=== PATIENT | male | born 1950 | race American Indian/Alaskan Native ===

== ENCOUNTER 2017-08-10 22:42 | Inpatient (IN) | payer MEDICARE ==
--- NOTE | 2017-08-10 23:40 | Emergency Department Report ---
HPI - General Time Seen by Provider: 08/10/17 22:50 - HPI HPI: This is a 66 year-old male presents to the emergency department by EMS from home after the patient had an episode of passing out with some seizure-like activity. Patient says that he had 2 episodes of passing out about 2 weeks ago. He was never seen for this at that time. This evening the patient says that his called him in to look at something at the computer screen and the patient says that he told his that he felt dizzy and similar to when he passed out a few weeks ago. Shortly after this he says he woke up on the ground having passed out once again. Patient has a history of hypertension and trigeminal neuralgia and is on carbamazepine for this. He denies any history of CVA, IN or seizures. No recent travel or sick contacts at home. ED Review of Systems ROS: Stated complaint: DIZZINESS Other details as noted in HPI Comment: All other systems reviewed and negative Constitutional: denies: chills, fever Eyes: denies: eye pain, eye discharge, vision change ENT: denies: ear pain, throat pain Respiratory: denies: cough, shortness of breath, wheezing Cardiovascular: syncope. denies: chest pain Gastrointestinal: denies: abdominal pain, nausea, diarrhea Genitourinary: denies: urgency, dysuria Musculoskeletal: denies: back pain, joint swelling, arthralgia Skin: denies: rash, lesions Neurological: other (dizziness). denies: numbness Physical Exam - Physical Exam Physical Exam: GENERAL: The patient is well-developed well-nourished. HENT: Normocephalic. Atraumatic. Patient has moist mucous membranes. EYES: Extraocular motions are intact. Pupils equal reactive to light bilaterally. Fatigable horizontal nystagmus. NECK: Supple. Trachea is midline. CHEST/LUNGS: Clear to auscultation. There is no respiratory distress noted. HEART/CARDIOVASCULAR: Regular. There is no tachycardia. There is no murmur. ABDOMEN: Abdomen is soft, nontender. Patient has normal bowel sounds. There is no abdominal distention. SKIN: Skin is warm and dry. NEURO: The patient is awake, alert, and oriented. The patient is cooperative. The patient has no focal neurologic deficits. The patient has normal speech. Cranial nerves II-12 grossly intact. MUSCULOSKELETAL: There is no tenderness or deformity. There is no limitation range of motion. There is no evidence of acute injury. ED Medical Decision Making - Lab Data Result diagrams: 08/10/17 23:55 08/10/17 23:55 - EKG Data -: EKG Interpreted by Me EKG shows normal: sinus rhythm, axis, intervals, QRS complexes, ST-T waves Rate: normal - EKG Data When compared to previous EKG there are: previous EKG unavailable Interpretation: normal EKG - Radiology Data Radiology results: report reviewed, image reviewed interpreted by me: Chest x-ray does not show any acute process. There are no pleural effusions, obvious pneumonia and there is no pneumothorax. EXAM: CT HEAD/BRAIN WO CON HISTORY: Syncope COMPARISON: None available. TECHNIQUE: Axial images obtained skull base through vertex. FINDINGS: No acute intracranial hemorrhage, midline shift or pathologic extra axial fluid collection. Ventricles and cisterns are normal in size and configuration for the patient's age. Silvestre-white differentiation preserved. Calvarium grossly intact. Orbits are grossly unremarkable. Mild moderate mucosal thickening of the paranasal sinuses. Mastoid air cells are clear. IMPRESSION: No grossly acute intracranial abnormality. Transcribed By: LMA Dictated By: LANIE SHELBY MD Electronically Authenticated By: LANIE SHELBY MD Signed Date/Time: 08/10/171948 - Medical Decision Making Patient presents after some type of syncopal event versus seizure. This is the third such event in the past [address] of the head does not show any bleed, shift, mass or any acute process. EKG is normal. Labs are mostly unremarkable and did not show any etiology of his symptoms. However the patient says he still does not feel like himself. His has noticed a few instances where he appears to have some weakness and/or transient altered mental status. For these reasons, I feel the patient would benefit from admission for further evaluation and possible treatment. He has been accepted for admission by the hospitalist, Dr. Rosenberg. - Differential Diagnosis CVA, TIA, seizure, dysrhythmia Critical Care Time: No Critical care attestation.: If time is entered above; I have spent that time in minutes in the direct care of this critically ill patient, excluding procedure time. ED Disposition Clinical Impression: Syncope and collapse, Dizziness, Hypokalemia, Seizure-like activity Disposition: DC-09 OP ADMIT IP TO THIS HOSP Is pt being admited?: Yes Condition: Stable Instructions: Syncope (ED) Referrals: SIMONE SCHULER MD [Primary Care Provider] - 3-5 Days Time of Disposition: 05:01
--- NOTE | 2017-08-10 23:52 | Cat Scan Report ---
FINAL REPORT EXAM: CT HEAD/BRAIN WO CON HISTORY: Syncope COMPARISON: None available. TECHNIQUE: Axial images obtained skull base through vertex. FINDINGS: No acute intracranial hemorrhage, midline shift or pathologic extra axial fluid collection. Ventricles and cisterns are normal in size and configuration for the patient's age. Silvestre-white differentiation preserved. Calvarium grossly intact. Orbits are grossly unremarkable. Mild moderate mucosal thickening of the paranasal sinuses. Mastoid air cells are clear. IMPRESSION: No grossly acute intracranial abnormality.
--- NOTE | 2017-08-10 23:53 | XRay Report ---
FINAL REPORT EXAM: XR CHEST 1V AP HISTORY: Chest Pain COMPARISON: None available. FINDINGS: Frontal view(s) of the chest obtained. Heart normal in size. Mild tortuosity of the thoracic aorta. Mild linear atelectasis or scarring at the right lung base. Lungs otherwise clear. No pneumothorax. IMPRESSION: No grossly acute findings.
[2017-08-11 00:11] LABS: Basophils % (Auto) 2.3 % (0.0-1.8); Eosinophils % (Auto) 2.3 % (0.0-4.3); Hematocrit 39.8 % (35.5-45.6); Hemoglobin 13.4 gm/dl (11.8-15.2); Mean Corpuscular HGB Conc 34 % (32-34); Mean Corpuscular Hemoglobin 31 pg (28-32); Mean Corpuscular Volume 91 fl (84-94); Platelet Count 247 K/mm3 (140-440); Red Cell Distribution Width 13.2 % (13.2-15.2); White Blood Count 6.3 K/mm3 (4.5-11.0)
[2017-08-11 00:31] LABS: Alanine Aminotransferase 12 units/L (7-56); Albumin 3.9 g/dL (3.9-5); Albumin/Globulin Ratio 1.4 %; Alkaline Phosphatase 83 units/L (35-129); Anion Gap 14 mmol/L; BUN/Creatinine Ratio 22; Blood Urea Nitrogen 11 mg/dL (9-20); Calcium 8.5 mg/dL (8.4-10.2); Carbon Dioxide 29 mmol/L (22-30); Chloride 98.5 mmol/L (98-107); Glucose 158 mg/dL (75-100); Partial Thromboplastin Time 57.8 Sec. (24.2-36.6); Potassium 3.3 mmol/L (3.6-5.0); Sodium 138 mmol/L (137-145); Total Protein 6.7 g/dL (6.3-8.2)
[2017-08-11] MEDS ORDERED: K-DUR PO ONE (00:44)
[2017-08-11 01:29] LABS: INR > 17.67 (0.87-1.13)
[2017-08-11 02:16] LABS: Bilirubin,Urine NEG (Negative); Blood,Urine NEG (Negative); Ketones,Urine TR mg/dL (Negative); Leukocyte Esterase,Urine NEG (Negative); Mucus,Urine FEW /HPF; Nitrite,Urine NEG (Negative); Protein,Urine <15 mg/dL mg/dL (Negative); Urobilinogen,Urine < 2.0 mg/dL (<2.0)
[2017-08-11 02:37] LABS: Partial Thromboplastin Time 26.3 Sec. (24.2-36.6)
--- NOTE | 2017-08-11 03:32 | History and Physical Report ---
History of Present Illness Date of examination: 08/11/17 Date of admission: 08/11/17 Chief complaint: syncope History of present illness: This is a 66-year-old male with past medical history of hypertension and trigeminal neuralgia who presented to the emergency department with complaints of syncope. Patient reportedly has had 2 previous episodes of syncope that occurred approximately 2 weeks ago. The patient was noted to have a third syncopal episode today that was witnessed by the . ER physician states that the reported some questionable seizure activity previously, but no seizure activity tonight. is not available during my interview this morning. Patient did not have any bowel or bladder incontinence. Patient reported feeling dizzy prior to the episode. Patient denies any previous history of seizure disorder. Patient takes carbamazepine for his trigeminal neuralgia. No fever or chills. No cough or cold like symptoms. No headache or visual disturbances. No paresthesias or weakness. Past History Past Medical History: hypertension, other (trigeminal neuralgia) Past Surgical History: No surgical history Social history: no significant social history Family history: no significant family history Medications and Allergies Allergies Allergy/AdvReac Type Severity Reaction Status Date / Time No Known Allergies Allergy Unverified 08/10/17 23:32 Review of Systems All systems: negative Exam - Constitutional Vitals: Temp Pulse Resp BP Pulse Ox 98.9 F 76 13 121/82 94 08/10/17 23:40 08/11/17 01:00 08/11/17 01:00 08/11/17 01:00 08/11/17 01:00 General appearance: Present: no acute distress, well-nourished - EENT Eyes: Present: PERRL ENT: hearing intact, clear oral mucosa - Neck Neck: Present: supple, normal ROM - Respiratory Respiratory effort: normal Respiratory: bilateral: CTA - Cardiovascular Heart Sounds: Present: S1 & S2. Absent: rub, click - Extremities Extremities: pulses symmetrical, No edema Peripheral Pulses: within normal limits - Abdominal General gastrointestinal: Present: soft, non-tender, non-distended, normal bowel sounds Male genitourinary: Present: normal - Integumentary Integumentary: Present: clear, warm, dry - Musculoskeletal Musculoskeletal: gait normal, strength equal bilaterally - Psychiatric Psychiatric: appropriate mood/affect, intact judgment & insight - Neurologic Neurologic: CNII-XII intact, moves all extremities Results - Labs CBC & Chem 7: 08/10/17 23:55 08/10/17 23:55 Labs: Laboratory Last Values WBC 6.3 K/mm3 (4.5-11.0) 08/10/17 23:55 RBC 4.40 M/mm3 (3.65-5.03) 08/10/17 23:55 Hgb 13.4 gm/dl (11.8-15.2) 08/10/17 23:55 Hct 39.8 % (35.5-45.6) 08/10/17 23:55 MCV 91 fl (84-94) 08/10/17 23:55 MCH 31 pg (28-32) 08/10/17 23:55 MCHC 34 % (32-34) 08/10/17 23:55 RDW 13.2 % (13.2-15.2) 08/10/17 23:55 Plt Count 247 K/mm3 (140-440) 08/10/17 23:55 Lymph % (Auto) 11.7 % (13.4-35.0) L 08/10/17 23:55 [place] % (Auto) 3.9 % (0.0-7.3) 08/10/17 23:55 Eos % (Auto) 2.3 % (0.0-4.3) 08/10/17 23:55 Baso % (Auto) 2.3 % (0.0-1.8) H 08/10/17 23:55 Lymph # 0.7 K/mm3 (1.2-5.4) L 08/10/17 23:55 [place] # 0.2 K/mm3 (0.0-0.8) 08/10/17 23:55 Eos # 0.1 K/mm3 (0.0-0.4) 08/10/17 23:55 Baso # 0.1 K/mm3 (0.0-0.1) 08/10/17 23:55 Seg Neutrophils % 79.8 % (40.0-70.0) H 08/10/17 23:55 Seg Neutrophils # 5.0 K/mm3 (1.8-7.7) 08/10/17 23:55 PT 13.7 Sec. (12.2-14.9) 08/11/17 01:51 INR 1.00 (0.87-1.13) 08/11/17 01:51 APTT 26.3 Sec. (24.2-36.6) 08/11/17 01:51 Sodium 138 mmol/L (137-145) 08/10/17 23:55 Potassium 3.3 mmol/L (3.6-5.0) L 08/10/17 23:55 Chloride 98.5 mmol/L (98-107) 08/10/17 23:55 Carbon Dioxide 29 mmol/L (22-30) 08/10/17 23:55 Anion Gap 14 mmol/L 08/10/17 23:55 BUN 11 mg/dL (9-20) 08/10/17 23:55 Creatinine 0.5 mg/dL (0.8-1.5) L 08/10/17 23:55 Estimated GFR > 60 ml/min 08/10/17 23:55 BUN/Creatinine Ratio 22 % 08/10/17 23:55 Glucose 158 mg/dL (75-100) H 08/10/17 23:55 Calcium 8.5 mg/dL (8.4-10.2) 08/10/17 23:55 Total Bilirubin 0.30 mg/dL (0.1-1.2) 08/10/17 23:55 AST 19 units/L (5-40) 08/10/17 23:55 ALT 12 units/L (7-56) 08/10/17 23:55 Alkaline Phosphatase 83 units/L (35-129) 08/10/17 23:55 Troponin T < 0.010 ng/mL (0.00-0.029) 08/11/17 01:51 Total Protein 6.7 g/dL (6.3-8.2) 08/10/17 23:55 Albumin 3.9 g/dL (3.9-5) 08/10/17 23:55 Albumin/Globulin Ratio 1.4 % 08/10/17 23:55 TSH 0.495 mlU/mL (0.270-4.200) 08/10/17 23:55 Urine Color Yellow (Yellow) 08/11/17 01:56 Urine Turbidity Clear (Clear) 08/11/17 01:56 Urine pH 7.0 (5.0-7.0) 08/11/17 01:56 Ur Specific [place] 1.014 (1.003-1.030) 08/11/17 01:56 Urine Protein <15 mg/dl mg/dL (Negative) 08/11/17 01:56 Urine Glucose (UA) Neg mg/dL (Negative) 08/11/17 01:56 Urine Ketones Tr mg/dL (Negative) 08/11/17 01:56 Urine Blood Neg (Negative) 08/11/17 01:56 Urine Nitrite Neg (Negative) 08/11/17 01:56 Urine Bilirubin Neg (Negative) 08/11/17 01:56 Urine Urobilinogen < 2.0 mg/dL (<2.0) 08/11/17 01:56 Ur Leukocyte Esterase Neg (Negative) 08/11/17 01:56 Urine WBC (Auto) 1.0 /HPF (0.0-6.0) 08/11/17 01:56 Urine RBC (Auto) 5.0 /HPF (0.0-6.0) 08/11/17 01:56 Urine Mucus Few /HPF 08/11/17 01:56 Assessment and Plan Assessment and plan: Syncope. Etiology is unknown. Check echocardiogram and carotid ultrasound. Patient will be monitored on telemetry. Consider cardiology consultation. ? Seizure disorder. I do not believe patient had any seizure activity. We will attempt to obtain further history from the later today. Consider neurology consultation. Check EEG. Hypertension. Continue antihypertensive medications. Trigeminal neuralgia. Continue carbamazepine. DVT prophylaxis. Lovenox daily.
[2017-08-11] MEDS ORDERED: TYLENOL PO PRN (03:40)
[2017-08-11] MEDS ORDERED: MILK OF MAGNESIA PO PRN (03:40)
[2017-08-11] MEDS ORDERED: DULCOLAX PR PRN (03:40)
[2017-08-11] MEDS ORDERED: ZOFRAN IV PRN (03:40)
[2017-08-11] MEDS: NACL 0.9% 1000 ML 1,000 ML IV SCH ×2 (05:33→19:53)
[2017-08-11] MEDS ORDERED: NACL 0.9% 1000 ML 1,000 ML ONE (05:37)
[2017-08-11] MEDS: LOVENOX SUB-Q SCH (09:45)
--- NOTE | 2017-08-11 15:06 | Event Note ---
Date: 08/11/17 Pt seen and examined. This is a 66-year-old male with past medical history of hypertension and trigeminal neuralgia who presented to the emergency department with complaints of syncope. Will cont continue current management and plan as dictated in H and P.
[2017-08-12 06:41] LABS: Hematocrit 37.1 % (35.5-45.6); Hemoglobin 12.6 gm/dl (11.8-15.2); Mean Corpuscular HGB Conc 34 % (32-34); Mean Corpuscular Hemoglobin 31 pg (28-32); Mean Corpuscular Volume 92 fl (84-94); Platelet Count 240 K/mm3 (140-440); Red Blood Count 4.03 M/mm3 (3.65-5.03); Red Cell Distribution Width 13.4 % (13.2-15.2); White Blood Count 2.9 K/mm3 (4.5-11.0)
[2017-08-12 06:54] LABS: Anion Gap 14 mmol/L; BUN/Creatinine Ratio 16; Blood Urea Nitrogen 8 mg/dL (9-20); Calcium 7.7 mg/dL (8.4-10.2); Carbon Dioxide 26 mmol/L (22-30); Chloride 107.9 mmol/L (98-107); Glucose 120 mg/dL (75-100); Potassium 3.8 mmol/L (3.6-5.0); Sodium 144 mmol/L (137-145)
[2017-08-12 07:45] LABS: Anisocytosis Few; Basophils % (Manual) 0 % (0.0-1.8); Blastocytes % (Manual) 0 %; Diff Status Complete
[2017-08-12] MEDS: LOVENOX SUB-Q SCH (09:08)
[2017-08-12] MEDS: NACL 0.9% 1000 ML 1,000 ML IV SCH (09:17)
--- NOTE | 2017-08-12 10:20 | Consultation ---
History of Present Illness Consult date: 08/12/17 Consult reason: syncope History of present illness: This is a 66yr old male who reports a history of hypertension and Trigeminal neuralgia who is admitted with syncope. Patient reports 2 weeks ago he passed out twice but he did not go to the emergency department at that time. There is no prior cardiac history or workup. Patient denies history of seizures. Patient reports sitting when he felt faint then passed out. He denies chest pain, shortness of breath and palpitations just prior to passing out. His 12 lead ECG is normal. A Head CT reports no acute intracranial process. Cardiology consultation was requested for further evaluation. Past History Past Medical History: hypertension, other (trigeminal neuralgia) Past Surgical History: No surgical history Social history: no significant social history Family history: no significant family history Medications and Allergies Allergies Allergy/AdvReac Type Severity Reaction Status Date / Time No Known Allergies Allergy Unverified 08/10/17 23:32 Home Medications Medication Instructions Recorded Confirmed Last Taken Type Acetaminophen [Tylenol] 1,000 mg PO TID 08/12/17 08/12/17 Unknown History Amoxicillin [Trimox CAP] 500 mg PO Q8H 08/12/17 08/12/17 Unknown History Cetirizine HCl [Zyrtec] 10 mg PO DAILY 08/12/17 08/12/17 Unknown History HYDROcodone/APAP 5-325 [[place] 1 each PO Q6HR PRN 08/12/17 08/12/17 Unknown History 5/325] Hydrochlorothiazide [Hctz] 12.5 mg PO QDAY 08/12/17 08/12/17 Unknown History Ibuprofen [Motrin] 400 mg PO Q6H PRN 08/12/17 08/12/17 Unknown History Lisinopril [Zestril] 20 mg PO DAILY 08/12/17 08/12/17 Unknown History Methocarbamol [Robaxin-750] 750 mg PO BID 08/12/17 08/12/17 Unknown History amLODIPine [Norvasc] 10 mg PO DAILY 08/12/17 08/12/17 Unknown History carBAMazepine 200 mg PO BID 08/12/17 08/12/17 Unknown History oxyCODONE /ACETAMINOPHEN [Percocet 5 - 325 mg PO Q6H PRN 08/12/17 08/12/17 Unknown History 5/325 mg] Active Meds: Active Medications Acetaminophen (Tylenol) 650 mg PO Q4H PRN PRN Reason: Pain MILD(1-3)/Fever >100.5/GUADARRAMA Bisacodyl (Dulcolax) 10 mg [place] QDAY PRN PRN Reason: Constipation unrelieved by MOM Enoxaparin Sodium (Lovenox) 40 mg SUB-Q QDAY ZEUS Last Admin: 08/12/17 09:08 Dose: 40 mg Sodium Chloride (Nacl 0.9% 1000 Ml) 1,000 mls @ 75 mls/hr IV DIRECT ZEUS Last Admin: 08/12/17 09:17 Dose: 75 mls/hr Magnesium Hydroxide (Milk Of Magnesia) 30 ml PO Q4H PRN PRN Reason: Constipation Ondansetron HCl (Zofran) 4 mg IV Q8H PRN PRN Reason: N/V unrelieved by Reglan Physical Examination Vital Signs BP 153/91 08/10/17 23:24 General appearance: no acute distress Cardiac: Positive: Reg Rate and Rhythm Results 08/12/17 05:22 08/12/17 05:22 CBC 08/12/17 Range/Units 05:22 WBC 2.9 L (4.5-11.0) K/mm3 RBC 4.03 (3.65-5.03) M/mm3 Hgb 12.6 (11.8-15.2) gm/dl Hct 37.1 (35.5-45.6) % Plt Count 240 (140-440) K/mm3 Comprehensive Metabolic Panel 08/12/17 Range/Units 05:22 Sodium 144 (137-145) mmol/L Potassium 3.8 (3.6-5.0) mmol/L Chloride 107.9 H (98-107) mmol/L Carbon Dioxide 26 (22-30) mmol/L BUN 8 L (9-20) mg/dL Creatinine 0.5 L (0.8-1.5) mg/dL Glucose 120 H (75-100) mg/dL Calcium 7.7 L (8.4-10.2) mg/dL Assessment and Plan Syncope Head CT -no acute intracranial process Hypertension Trigeminal Neuralgia Recommendations: Echocardiogram for LVEF assessment. Further cardiac evaluation with a persantine thallium stress test before discharge. Continue telemetry monitoring.
--- NOTE | 2017-08-12 12:21 | Consultation ---
History of Present Illness Consult date: 08/12/17 History of present illness: patient seen and assessed several issues are relevant... syncope sounds like vasovagal vrs basilar insuff. he also has severe problem with trigeminal neuralgia for whic h Tegretol has worked well plan w/u of the above Thanks Past History Past Medical History: hypertension, other (trigeminal neuralgia) Past Surgical History: No surgical history Social history: no significant social history Family history: no significant family history Medications and Allergies Allergies Allergy/AdvReac Type Severity Reaction Status Date / Time No Known Allergies Allergy Unverified 08/10/17 23:32 Home Medications Medication Instructions Recorded Confirmed Last Taken Type Acetaminophen [Tylenol] 1,000 mg PO TID 08/12/17 08/12/17 Unknown History Amoxicillin [Trimox CAP] 500 mg PO Q8H 08/12/17 08/12/17 Unknown History Cetirizine HCl [Zyrtec] 10 mg PO DAILY 08/12/17 08/12/17 Unknown History HYDROcodone/APAP 5-325 [[place] 1 each PO Q6HR PRN 08/12/17 08/12/17 Unknown History 5/325] Hydrochlorothiazide [Hctz] 12.5 mg PO QDAY 08/12/17 08/12/17 Unknown History Ibuprofen [Motrin] 400 mg PO Q6H PRN 08/12/17 08/12/17 Unknown History Lisinopril [Zestril] 20 mg PO DAILY 08/12/17 08/12/17 Unknown History Methocarbamol [Robaxin-750] 750 mg PO BID 08/12/17 08/12/17 Unknown History amLODIPine [Norvasc] 10 mg PO DAILY 08/12/17 08/12/17 Unknown History carBAMazepine 200 mg PO BID 08/12/17 08/12/17 Unknown History oxyCODONE /ACETAMINOPHEN [Percocet 5 - 325 mg PO Q6H PRN 08/12/17 08/12/17 Unknown History 5/325 mg] Active Meds: Active Medications Acetaminophen (Tylenol) 650 mg PO Q4H PRN PRN Reason: Pain MILD(1-3)/Fever >100.5/GUADARRAMA Bisacodyl (Dulcolax) 10 mg [place] QDAY PRN PRN Reason: Constipation unrelieved by MOM Enoxaparin Sodium (Lovenox) 40 mg SUB-Q QDAY ZEUS Last Admin: 08/12/17 09:08 Dose: 40 mg Sodium Chloride (Nacl 0.9% 1000 Ml) 1,000 mls @ 75 mls/hr IV DIRECT ZEUS Last Admin: 08/12/17 09:17 Dose: 75 mls/hr Magnesium Hydroxide (Milk Of Magnesia) 30 ml PO Q4H PRN PRN Reason: Constipation Ondansetron HCl (Zofran) 4 mg IV Q8H PRN PRN Reason: N/V unrelieved by Reglan Physical Examination - Vital Signs Vital Signs: Vital Signs BP 153/91 08/10/17 23:24 Results - Laboratory Findings CBC and BMP: 08/12/17 05:22 08/12/17 05:22 Abnormal Lab Findings: Abnormal Labs 08/10/17 08/10/17 08/10/17 23:55 23:55 23:55 WBC Lymph % (Auto) 11.7 L Baso % (Auto) 2.3 H Lymph # 0.7 L Seg Neutrophils % 79.8 H Seg Neuts % (Manual) Lymphocytes % (Manual) Eosinophils % (Manual) Seg Neutrophils # Man PT > 120.0 H INR > 17.67 H* APTT 57.8 H Potassium 3.3 L Chloride BUN Creatinine 0.5 L Glucose 158 H Calcium 08/12/17 08/12/17 05:22 05:22 WBC 2.9 L Lymph % (Auto) Baso % (Auto) Lymph # Seg Neutrophils % Seg Neuts % (Manual) 37.0 L Lymphocytes % (Manual) 47.0 H Eosinophils % (Manual) 6.0 H Seg Neutrophils # Man 1.1 L PT INR APTT Potassium Chloride 107.9 H BUN 8 L Creatinine 0.5 L Glucose 120 H Calcium 7.7 L
--- NOTE | 2017-08-12 19:47 | Progress Note ---
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 ECHO withEF 55-60% and carotid doppler were unrmarkable. Stress thallium recormebnde by Cardiology b/4 discharge - Trigeminal neuralgia. Continue carbamazepine - Seizure disorder. No likely. Neurology following. Check EEG. - Hypertension. controlled Continue antihypertensive medications. - DVT prophylaxis. Lovenox daily. Subjective Date of service: 08/12/17 Principal diagnosis: syncope Interval history: no more chest pain. Still having severe pain from trigemnl neurlgia Objective - Constitutional Vitals: Vital Signs - 12hr 08/12/17 08/12/17 08/12/17 09:26 09:35 09:47 Temperature 98.4 F 98.4 F Pulse Rate 80 88 Pulse Rate [ Apical] Pulse Rate [ 80 Lying] Pulse Rate [ 79 Sitting] Pulse Rate [ 87 Standing] Respiratory 20 20 Rate Blood Pressure 147/90 161/92 Blood Pressure 147/90 [Lying] Blood Pressure 157/89 [Sitting] Blood Pressure 161/92 [Standing] O2 Sat by Pulse 97 99 Oximetry 08/12/17 08/12/17 10:00 15:40 Temperature 98.5 F Pulse Rate 77 75 Pulse Rate [ 77 Apical] Pulse Rate [ Lying] Pulse Rate [ Sitting] Pulse Rate [ Standing] Respiratory 18 Rate Blood Pressure 135/88 Blood Pressure [Lying] Blood Pressure [Sitting] Blood Pressure [Standing] O2 Sat by Pulse 97 Oximetry General appearance: Present: no acute distress, well-nourished - EENT Eyes: PERRL, EOM intact Ears: bilateral: normal - Neck Neck: supple, normal ROM - Respiratory Respiratory effort: normal - Cardiovascular Rhythm: regular Heart Sounds: Present: S1 & S2. Absent: gallop, rub Extremities: pulses intact, No edema, normal color, Full ROM - Gastrointestinal General gastrointestinal: Present: soft, non-tender, non-distended, normal bowel sounds - Integumentary Integumentary: clear, warm, dry - Musculoskeletal Musculoskeletal: 1, strength equal bilaterally - Neurologic Neurologic: moves all extremities - Psychiatric Psychiatric: memory intact, appropriate mood/affect, intact judgment & insight - Labs CBC & Chem 7: 08/12/17 05:22 08/12/17 05:22 Labs: Abnormal lab results 08/12/17 08/12/17 Range/Units 05:22 05:22 WBC 2.9 L (4.5-11.0) K/mm3 Seg Neuts % (Manual) 37.0 L (40.0-70.0) % Lymphocytes % (Manual) 47.0 H (13.4-35.0) % Eosinophils % (Manual) 6.0 H (0.0-4.3) % Seg Neutrophils # Man 1.1 L (1.8-7.7) K/mm3 Chloride 107.9 H (98-107) mmol/L BUN 8 L (9-20) mg/dL Creatinine 0.5 L (0.8-1.5) mg/dL Glucose 120 H (75-100) mg/dL Calcium 7.7 L (8.4-10.2) mg/dL
[2017-08-13] MEDS: NACL 0.9% 1000 ML 1,000 ML IV SCH (01:49)
[2017-08-13] MEDS ORDERED: LEXISCAN IV ONE ×2 (09:09)
[2017-08-13] MEDS: LOVENOX SUB-Q SCH (10:21)
--- NOTE | 2017-08-13 11:21 | Progress Note ---
Assessment and Plan Syncope Echo - normal LVEF Tele - no arrhythmias MPI - no ischemia No further cardiac work-up needed Subjective Date of service: 08/13/17 Principal diagnosis: syncope Interval history: No events overnight No arrhythmias on tele Objective Vital Signs Temp Pulse Resp BP Pulse Ox 08/13/17 09:34 86 156/87 08/13/17 09:33 84 151/89 08/13/17 09:32 85 151/85 08/13/17 09:31 90 146/88 08/13/17 09:30 91 H 137/87 08/13/17 09:29 94 H 154/97 08/13/17 09:21 71 155/101 08/13/17 08:01 98.5 F 70 18 142/87 96 08/13/17 05:09 98.2 F 73 18 140/85 97 08/12/17 22:00 82 18 08/12/17 20:34 98.6 F 18 140/84 08/12/17 20:00 82 98 08/12/17 15:40 98.5 F 75 18 135/88 97 - Physical Examination General: Appears Well HEENT: Positive: PERRL Neck: Positive: neck supple Cardiac: Positive: Reg Rate and Rhythm Lungs: Positive: Normal Exam Neuro: Positive: Grossly Intact Abdomen: Positive: Soft Extremities: Present: normal
--- NOTE | 2017-08-13 14:23 | Discharge Summary ---
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 The patient went on to have a cardiac workup that was negative which included echocardiogram MPI and telemetry monitoring. He did not have any episodes of seizure while in hospital, and given his presentation seizure was unlikely. After discussing the case with cardiology appeared that he had vasovagal syncope. Discharge diagnosis Vasovagal syncope Autonomic imbalance Trigeminal neuralgia Hypertension - Disposition: DC-01 TO HOME OR SELFCARE Time spent for discharge: 33 minutes Core Measure Documentation - Palliative Care Palliative Care/ Comfort Measures: Not Applicable - Core Measures Any of the following diagnoses?: none Exam - Constitutional Vitals: Temp Pulse Resp BP Pulse Ox 98.5 F 86 18 156/87 96 08/13/17 08:01 08/13/17 09:34 08/13/17 08:01 08/13/17 09:34 08/13/17 08:01 General appearance: Present: no acute distress, well-nourished - EENT Eyes: Present: PERRL ENT: hearing intact, clear oral mucosa - Neck Neck: Present: supple, normal ROM - Respiratory Respiratory effort: normal Respiratory: bilateral: CTA - Cardiovascular Heart Sounds: Present: S1 & S2. Absent: rub, click - Extremities Extremities: pulses symmetrical, No edema Peripheral Pulses: within normal limits - Abdominal General gastrointestinal: Present: soft, non-tender, non-distended, normal bowel sounds Male genitourinary: Present: normal - Integumentary Integumentary: Present: clear, warm, dry - Musculoskeletal Musculoskeletal: gait normal, strength equal bilaterally - Psychiatric Psychiatric: appropriate mood/affect, intact judgment & insight - Neurologic Neurologic: CNII-XII intact, moves all extremities Plan Follow up with: SIMONE SCHULER MD [Primary Care Provider] - 3-5 Days Prescriptions: oxyCODONE /ACETAMINOPHEN [Percocet 5/325 mg] 5 - 325 mg PO Q6H PRN #14 tablet PRN Reason: Pain
[2017-08-13 15:58] VITALS: BP 124/80
--- NOTE | 2017-08-13 22:27 | Treadmill Report ---
INDICATION: Syncope. ORDERING PHYSICIAN: Agnes Lazcano MD FINDINGS: There is no scintigraphic evidence of myocardial ischemia. The left ventricle is normal in size and systolic function. The left ventricular ejection fraction is measured at 56%. Normal wall motion and wall thickening is noted on gated imaging. CONCLUSION: Normal perfusion scan. JOB# [id number] AKRandy/NTS
--- NOTE | 2017-08-20 13:37 | Vascular Lab Report ---
CAROTID DUPLEX STUDY: RIGHT PSVEDV CCA PROX:[id number] CCA DIST:8826 ICA PROX:4513 ICA MID:6322 ICA DIST:8329 ECA: 71 VERT: 53 19 LEFT PSVEDV CCA PROX:9117 CCA DIST:6419 ICA PROX:7419 ICA MID:7026 ICA DIST:8430 ECA: 75 VERT: 39 14 REASON FOR EXAM: Carotid artery stenosis. COMMENTS ON THE RIGHT: Doppler frequency analysis is consistent with 16 to 49 percent diameter reduction of the internal carotid artery. Eccentric, mixed density plaque is seen in the bulb. The common carotid artery is patent. The external carotid artery is patent. The vertebral artery has antegrade flow. COMMENTS ON THE LEFT: Doppler frequency analysis is consistent with 16 to 49 percent diameter reduction of the internal carotid artery. Minimal amount of plaque is seen. The common carotid artery is patent. The external carotid artery is patent. The vertebral artery has antegrade flow. IMPRESSION: Less than 50% diameter reduction in the internal carotid arteries bilaterally. Consider repeat carotid artery duplex in 12 months.
== END 2017-08-13 18:28 | disposition home or self-care (01) | DRG 69 ==
LOC: ED 22:42 → 2B-ACE 08-11 03:40
PROVIDERS: ADMIT Hospitalist; ATTEND Internal Medicine
DX: I67.81 Acute cerebrovascular insufficiency (principal); G40.909 Epilepsy, unspecified, not intractable, without status epilepticus; I10 Essential (primary) hypertension; G50.0 Trigeminal neuralgia; E87.6 Hypokalemia; Z79.899 Other long term (current) drug therapy; D69.6 Thrombocytopenia, unspecified
CPT/HCPCS: 36415; 70450; 71010; 78452; 80048; 80053; 81001; 82962; 84443; 84484; 85007; 85025; 85610; 85730; 93005; 93010; 93017; 93306; 93880; 95819; A9502; J1650; J2405; J2785; J7030